=== PATIENT | male | born 1980 | race Caucasian/White ===

== ENCOUNTER 2023-06-22 17:12 | Emergency (ER) | payer SELFPAY ==
[~2023-06-22] VITALS: Ht 170.2 cm; Wt 81.6 kg
--- NOTE | 2023-06-22 17:38 | ED Chest Pain ---
General Stated Complaint: HEART PALPITATIONS Source: patient Exam Limitations: no limitations History of Present Illness Date Seen by Provider: Jun 22, 2023 Time Seen by Provider: 17:34 Initial Comments Patient is a 42-year-old male with a history of hypertension, smoking, heart palpitations, anxiety presents ED for chest pain. Pain is located substernal d escribed as sharp intermittent since this morning. Started having some tightness to his back and pain and discomfort last night with some discomfort today. Woke up with some shortness of breath with some exertion. Sharp pain into the left jaw. Feels like he is having heart palpitations. Similar symptoms in the past. Currently on levothyroxine for hypothyroidism. Does take amlodipine for high blood pressure. Took his blood pressure at home which read 167/92. Patient states he does feel anxious. [place] queasy. Denies any vomiting, diarrhea, cough, headache, visual changes, sore throat, ear pain. Denies of any recent travels or surgeries. Denies any leg pain or swelling. Allergies and Home Medications Patient Home Medication List Home Medication List Reviewed: Yes Review of Systems Review of Systems Constitutional: No chills, No diaphoresis EENTM: No Double Vision, No Eye Pain Respiratory: Denies Cough, Denies Orthopnea; Shortness of Air Cardiovascular: Chest Pain Gastrointestinal: Denies Abdominal Pain, Denies Diarrhea, Denies Nausea, Denies Vomiting Genitourinary: Denies Burning, Denies Discharge, Denies Drainage Musculoskeletal: No back pain, No joint pain Skin: No change in color, No change in hair/nails All Other Systems Reviewed Negative Unless Noted: Yes Physical Exam Vital Signs Vital Signs - First Documented 06/22/23 17:18 Temp 37.4 Pulse 81 Resp 14 B/P (MAP) 174/98 (123) Pulse Ox 97 Capillary Refill : Height, Weight, BMI Height: '" Weight: lbs. oz. kg; BMI Method: General Appearance: No Apparent Distress, WD/WN HEENT: PERRL/EOMI, TMs Normal, Normal ENT Inspection, Pharynx Normal Neck: Full Range of Motion, Normal Inspection, Non Tender, Supple Respiratory: Chest Non Tender, Lungs Clear, Normal Breath Sounds, No Accessory Muscle Use, No Respiratory Distress Cardiovascular: Regular Rate, Rhythm, No Edema, No Gallop, No JVD Gastrointestinal: Normal Bowel Sounds, No Organomegaly, No Pulsatile Mass, Non Tender Extremity: Normal Capillary Refill, Normal Inspection, Normal Range of Motion, Non Tender Neurologic/Psychiatric: Alert, Oriented x3, No Motor/Sensory Deficits, Normal Mood/Affect, radarman II-XII Norm as Tested Skin: Normal Color, Warm/Dry Progress/Results/Core Measures Results/Orders Lab Results Laboratory Tests Test 06/22/23 17:33 06/22/23 19:37 Range/Units White Blood Count 9.8 4.3-11.0 10^3/uL Red Blood Count 4.82 4.30-5.52 10^6/uL Hemoglobin 14.8 13.3-17.7 g/dL Hematocrit 44 40-54 % Mean Corpuscular Volume 91 80-99 fL Mean Corpuscular Hemoglobin 31 25-34 pg Mean Corpuscular Hemoglobin Concent 34 32-36 g/dL Red Cell Distribution Width 12.6 10.0-14.5 % Platelet Count 341 130-400 10^3/uL Mean Platelet Volume 9.8 9.0-12.2 fL Immature Granulocyte % (Auto) 0 % Neutrophils (%) (Auto) 65 42-75 % Lymphocytes (%) (Auto) 22 12-44 % Monocytes (%) (Auto) 8 0-12 % Eosinophils (%) (Auto) 4 0-10 % Basophils (%) (Auto) 0 0-10 % Neutrophils # (Auto) 6.3 1.8-7.8 10^3/uL Lymphocytes # (Auto) 2.2 1.0-4.0 10^3/uL Monocytes # (Auto) 0.8 0.0-1.0 10^3/uL Eosinophils # (Auto) 0.4 H 0.0-0.3 10^3/uL Basophils # (Auto) 0.0 0.0-0.1 10^3/uL Immature Granulocyte # (Auto) 0.0 0.0-0.1 10^3/uL Prothrombin Time 13.2 12.2-14.7 SEC INR Comment 1.0 0.8-1.4 Activated Partial Thromboplast Time 32 24-35 SEC Sodium Level 138 135-145 MMOL/L Potassium Level 3.9 3.6-5.0 MMOL/L Chloride Level 104 98-107 MMOL/L Carbon Dioxide Level 23 21-32 MMOL/L Anion Gap 11 5-14 MMOL/L Blood Urea Nitrogen 14 7-18 MG/DL Creatinine 0.86 0.60-1.30 MG/DL Estimat Glomerular Filtration Rate 111 BUN/Creatinine Ratio 16 Glucose Level 100 70-105 MG/DL Calcium Level 9.4 8.5-10.1 MG/DL Corrected Calcium 8.5-10.1 MG/DL Magnesium Level 2.1 1.6-2.4 MG/DL Total Bilirubin 0.4 0.1-1.0 MG/DL Aspartate Amino Transf (AST/SGOT) 20 5-34 U/L Alanine Aminotransferase (ALT/SGPT) 22 0-55 U/L Alkaline Phosphatase 68 40-136 U/L Myoglobin 24.1 10.0-92.0 NG/ML Troponin I < 0.028 < 0.028 <0.028 NG/ML B-Type Natriuretic Peptide 11.5 <100.0 PG/ML Total Protein 7.9 6.4-8.2 GM/DL Albumin 4.7 H 3.2-4.5 GM/DL Lipase 24 8-78 U/L Thyroid Stimulating Hormone (TSH) 5.66 H 0.35-4.94 UIU/ML My Orders Orders - KEATON TRAN PA Ekg Tracing (06/22/23 17:18) Cbc With Automated Diff (06/22/23 17:23) Magnesium (06/22/23 17:23) Chest 1 View, Ap/Pa Only (06/22/23 17:23) Ekg Tracing (06/22/23 17:23) Comprehensive Metabolic Panel (06/22/23 17:23) Myoglobin Serum (06/22/23 17:23) Protime With Inr (06/22/23 17:23) Partial Thromboplastin Time (06/22/23 17:23) O2 (06/22/23 17:23) Monitor-Rhythm Ecg Trace Only (06/22/23 17:23) Ed Iv/Invasive Line Start (06/22/23 17:23) Lipase (06/22/23 17:23) Bnp Anna (06/22/23 17:23) Troponin I Anna (06/22/23 17:23) Thyroid Stimulating Hormone (06/22/23 17:23) Troponin I Anna (06/22/23 19:33) Vital Signs/I&O 06/22/23 17:18 Temp 37.4 Pulse 81 Resp 14 B/P (MAP) 174/98 (123) Pulse Ox 97 Comment Sinus rhythm, 66 bpm, QRS duration 94 MS, QTc 385 MS Departure Communication (PCP) Patient presents to ED with multiple complaints. Patient with chest pain, back pain pain into the left jaw with shortness of breath. Differential diagnosis chest pain, hyperthyroidism, anxiety, palpitations, electrolyte abnormality, arrhythmia. Cardiac work-up was initiated. EKG showed normal sinus rhythm without evidence of ST elevation or depression. No specific chest pain at this time. Chest x-ray was obtained which did not note any acute abnormality. No evidence of pneumonia, pneumothorax, mediastinal widening. CBC, CMP grossly unremarkable. TSH just a little over 5. He recently started levothyroxine 5 days ago which may take some time for for improvement of his levels. Patient was slightly hypertensive but did improve without any intervention. Amlodipine for blood pressure. Blood pressure was 141/88. Patient is not tachycardic or hypoxic. Low risk for PE. History of smoking. Does have cardiac risk factors. Heart score of 2. No family history of sudden cardiac . No evidence of murmur. Suggest 2-hour troponin which was ordered which was negative. Remained asymptomatic here. Does appear slightly anxious. Due to reassuring cardiac work-up and low heart score patient will be discharged with cardiac outpatient follow-up. It was recommended for patient to get a Holter monitor due to his heart palpitations but has not been able to follow-up. Provided cardiology outpatient follow-up and discharge instructions. Return precaution were discussed such as worsening chest pain or shortness of breath. Avoiding caffeine or excessive coffee. recommend staying hydrated. Concern for potential anxiety component. Impression Primary Impression: Chest pain Additional Impression: Palpitations Disposition: HOME, SELF-CARE Condition: Stable Departure-Patient Inst. Decision time for Depature: 18:40 Referrals: ZANA FINLEY MD (PCP) Primary Care Physician STEVE FERNÁNDEZ MD Patient Instructions: Palpitations Add. Discharge Instructions: Recommend continue with your thyroid medication. Recommend staying hydrated. If any worsening symptoms return back to ED. Strongly recommend following up with cardiology for further evaluation Holter monitor. KEATON TRAN Jun 22, 2023 17:38
[2023-06-22 17:44] LABS: BASOPHILS % (AUTO) 0 % (0-10); EOSINOPHILS # (AUTO) 0.4 10^3/uL (0.0-0.3); EOSINOPHILS % (AUTO) 4 % (0-10); HEMATOCRIT 44 % (40-54); HEMOGLOBIN 14.8 g/dL (13.3-17.7); LYMPHOCYTES # (AUTO) 2.2 10^3/uL (1.0-4.0); LYMPHOCYTES % (AUTO) 22 % (12-44); MEAN CORPUSCULAR HEMOGLOBIN 31 pg (25-34); MEAN CORPUSCULAR HGB CONC 34 g/dL (32-36); MEAN CORPUSCULAR VOLUME 91 fL (80-99); MEAN PLATELET VOLUME 9.8 fL (9.0-12.2); MONOCYTES # (AUTO) 0.8 10^3/uL (0.0-1.0); MONOCYTES % (AUTO) 8 % (0-12); NEUTROPHILS # (AUTO) 6.3 10^3/uL (1.8-7.8); NEUTROPHILS % (AUTO) 65 % (42-75); PLATELET COUNT 341 10^3/uL (130-400); WHITE BLOOD COUNT 9.8 10^3/uL (4.3-11.0)
[2023-06-22 17:51] LABS: PROTHROMBIN TIME PATIENT 13.2 SEC (12.2-14.7)
[2023-06-22 18:01] LABS: ALANINE AMINOTRANSFERASE 22 U/L (0-55); ALBUMIN 4.7 GM/DL (3.2-4.5); ALKALINE PHOSPHATASE 68 U/L (40-136); BILIRUBIN,TOTAL 0.4 MG/DL (0.1-1.0); BUN/CREATININE RATIO 16; CALCIUM 9.4 MG/DL (8.5-10.1); CARBON DIOXIDE 23 MMOL/L (21-32); CHLORIDE 104 MMOL/L (98-107); CREATININE SERUM 0.86 MG/DL (0.60-1.30); GFR ESTIMATED 111; GLUCOSE 100 MG/DL (70-105); LIPASE 24 U/L (8-78); MAGNESIUM 2.1 MG/DL (1.6-2.4); POTASSIUM 3.9 MMOL/L (3.6-5.0); SODIUM 138 MMOL/L (135-145); TOTAL PROTEIN 7.9 GM/DL (6.4-8.2)
--- NOTE | 2023-06-22 18:09 | Diagnostic Imaging Report ---
INDICATION: Palpitations with chest pain. COMPARISON: None. FINDINGS: Single frontal view of the chest demonstrates normal heart size and pulmonary vascularity. The lungs are well aerated and clear. No large pleural effusion or pneumothorax is seen. The visualized osseous structures show no acute abnormality. IMPRESSION: No acute cardiopulmonary process. Dictated by: Dictated on workstation # [id number]
[2023-06-22 21:07] VITALS: BP 131/84
== END 2023-06-22 21:04 | disposition home or self-care (01) ==
LOC: EDUNIT# 17:12 → ER 17:15
DX: R07.2 Precordial pain (principal); R00.2 Palpitations; E03.9 Hypothyroidism, unspecified; I10 Essential (primary) hypertension; Z79.899 Other long term (current) drug therapy
CPT/HCPCS: 36415; 71045; 80053; 83690; 83735; 83874; 83880; 84443; 84484; 85025; 85610; 85730; 93005; 93041